=== PATIENT | female | born 1965 | race Caucasian/White ===

== ENCOUNTER → 2017-02-16 | Outpatient (CLI) | payer SELFPAY | LOC: FIMAGING 15:49 | PROVIDERS: ATTEND Orthopaedic Surgery | DX: Z01.818 Encounter for other preprocedural examination (principal); M17.11 Unilateral primary osteoarthritis, right knee ==

== ENCOUNTER 2017-03-04 06:01 | Observation (INO) | payer BC, OTHER ==
[~2017-03-04 06:01] MED LIST: ROPIVACAINE 0.2% 80 MG, EPINEPHrine 0.2 MG, KETOROLAC TROMETHAMINE 30 MG in SYRINGE 0 ML IU ONE; TRANEXAMIC ACID 3,000 MG in NS 50 ML IRR ONE
[2017-03-04] MEDS ORDERED: ceFAZolin 2 GM/SWFI 2 GM/20 ML SYR IVP ONE (06:26)
[2017-03-04] MEDS ORDERED: DEXAMETHASONE 4 MG/ML VIAL IVP ONE (06:26)
[2017-03-04] MEDS ORDERED: FAMOTIDINE 20 MG TAB PO ONE (06:26)
[2017-03-04] MEDS ORDERED: LR 1,000 ML IV ONE (06:26)
[2017-03-04] MEDS ORDERED: ACETAMINOPHEN 325 MG TAB PO ONE (06:26)
[2017-03-04] MEDS ORDERED: LIDOCAINE 1% 2 ML INJ ONE (06:33)
[2017-03-04] MEDS ORDERED: VANCOMYCIN 1 GM VIAL ONE (06:52)
[2017-03-04] MEDS ORDERED: TRANEXAMIC ACID 3,000 MG/50 ML BAG IRR ONE (06:53)
--- NOTE | 2017-03-04 07:24 | PDHPUP ---
History & Physical Update H&P update statement: This history and physical update is based on an assessment of the patient which was completed after admission or registration (within 24 hours), but prior to the surgery/procedure. H&P update: H&P reviewed & patient examined, no change in patient's condition since H&P completed
[2017-03-04] MEDS ORDERED: PROPOFOL 200 MG/20 ML VIAL ONE ×2 (07:53→09:01)
[2017-03-04] MEDS ORDERED: MIDAZOLAM 2 MG/2 ML VIAL ONE (07:53)
[2017-03-04] MEDS ORDERED: fentaNYL 100 MCG/2 ML INJ IVP PRN (08:26)
[2017-03-04] MEDS ORDERED: LR 500 ML IV PRN (08:26)
[2017-03-04] MEDS ORDERED: MEPERIDINE 25 MG/ML SYR IVP PRN (08:26)
[2017-03-04] MEDS ORDERED: NALOXONE HCL 0.4 MG/ML INJ IVP PRN (08:26)
[2017-03-04] MEDS ORDERED: PROMETHAZINE HCL 25 MG/ML INJ IVP PRN ×2 (08:26→09:30)
[2017-03-04] MEDS ORDERED: OXYCODONE/APAP 5/325 TAB PO PRN (08:26)
[2017-03-04] MEDS ORDERED: ALBUTEROL 3 ML DEYVIAL IH PRN (08:26)
[2017-03-04] MEDS ORDERED: ACETAMINOPHEN 500 MG TAB PO PRN (08:26)
[2017-03-04] MEDS ORDERED: HYDROCODONE/APAP 5/325 TAB PO PRN (08:26)
[2017-03-04] MEDS ORDERED: METOCLOPRAMIDE 10 MG/2 ML VIAL IVP PRN ×2 (08:26→09:30)
[2017-03-04] MEDS ORDERED: ONDANSETRON 4 MG/2 ML VIAL IVP PRN ×2 (08:26→09:30)
[2017-03-04] MEDS ORDERED: DEXAMETHASONE 4 MG/ML VIAL IVP PRN (08:26)
--- NOTE | 2017-03-04 08:26 | PDANEPAE ---
ANE Past Medical History - Cardiovascular History Hx Hypertension: No Hx Arrhythmias: No Hx Chest Pain: No Hx Coronary Artery / Peripheral Vascular Disease: No Hx CHF / Valvular Disease: No Hx Palpitations: No - Pulmonary History Hx COPD: No Hx Asthma/Reactive Airway Disease: No Hx Recent Upper Respiratory Infection: No Hx Oxygen in Use at Home: No Hx Sleep Apnea: No Sleep Apnea Screening Result - Last Documented: Negative Pulmonary History Comment: CHILDHOOD ASTHMA - Neurologic History Hx Cerebrovascular Accident: No Hx Seizures: No Hx Dementia: No - Endocrine History Hx Diabetes: No - Renal History Hx Renal Disorders: No - Liver History Hx Hepatic Disorders: No - Neurological & Psychiatric Hx Hx Neurological and Psychiatric Disorders: No - Cancer History Hx Cancer: No - Congenital Disorder History Hx Congenital Disorders: No - GI History Hx Gastrointestinal Disorders: No - Other Health History Other Health History: NEG - Chronic Pain History Chronic Pain: Yes (R KNEE, LOW BACK) - Surgical History Prior Surgeries: KNEE SURG X4 R ANE Review of Systems Review of Systems: - Exercise capacity METS (RN): 6 METS ANE Patient History - Allergies Allergies/Adverse Reactions: No Known Allergies Allergy (Unverified 01/13/17 14:39) - Home Medications Home Medications: Calcium Carbonate [Oyster Shell Calcium 500 mg (*)] 500 mg PO DAILY 01/13/17 [ Last Taken 02/22/17] Ibuprofen [Motrin (*)] 200 mg PO DAILY PRN 01/13/17 [Last Taken 02/22/17] Multivitamins [Multivitamin (*)] 1 each PO DAILY 01/13/17 [Last Taken 02/22/17] - NPO status NPO Since - Liquids (Date): 03/04/17 NPO Since - Liquids (Time): 04:55 NPO Since - Solids (Date): 03/03/17 NPO Since - Solids (Time): 20:00 - Smoking Hx Smoking Status: Never smoked - Family Anes Hx Family Hx Anesthesia Complications: NEG ANE Labs/Vital Signs - Vital Signs Blood Pressure: 120/81 Heart Rate: 53 Respiratory Rate: 16 O2 Sat (%): 96 Height: 160.02 cm Weight: 63.503 kg ANE Physical Exam - Airway Neck exam: FROM Mallampati Score: Class 1 Mouth exam: normal dental/mouth exam - Pulmonary Pulmonary: no respiratory distress, no rales or rhonchi, clear to auscultation - Cardiovascular Cardiovascular: regular rate and rhythym, no murmur, rub, or gallop - ASA Status ASA Status: I ANE Anesthesia Plan Anesthesia Plan: spinal Regional Anesthesia: single shot NB, adductor canal FNB
[2017-03-04] MEDS ORDERED: LIDOCAINE 2% 5 ML SDV ONE (08:27)
[2017-03-04] MEDS ORDERED: ROPIVACAINE HCL 150 MG/30 ML INJ ONE (08:27)
[2017-03-04] MEDS ORDERED: LR 1,000 ML IV SCH (09:30)
[2017-03-04] MEDS ORDERED: BISACODYL 10 MG SUPP PR PRN (09:30)
[2017-03-04] MEDS ORDERED: MAGNESIUM HYDROXIDE 30 ML UDCUP PO PRN (09:30)
[2017-03-04] MEDS ORDERED: PROMETHAZINE HCL 25 MG SUPPR PR PRN (09:30)
[2017-03-04] MEDS ORDERED: POLYETHYLENE GLYCOL 3350 17 GM PKT PO PRN (09:30)
[2017-03-04] MEDS ORDERED: oxyCODONE IR 5 MG TAB PO PRN (09:30)
[2017-03-04] MEDS ORDERED: diphenhydrAMINE 25 MG CAP PO PRN (09:30)
[2017-03-04] MEDS ORDERED: ONDANSETRON DISINTEGRATING 4 MG TAB PO PRN (09:30)
[2017-03-04] MEDS ORDERED: LACTULOSE 20 GM/30 ML UDCUP PO PRN (09:30)
[2017-03-04] MEDS ORDERED: CYCLOBENZAPRINE 10 MG TAB PO PRN (09:30)
[2017-03-04] MEDS ORDERED: TEMAZEPAM 15 MG CAP PO PRN (09:30)
[2017-03-04] MEDS ORDERED: DIPHENOXYLATE/ATROPINE LOMOTIL 1 TAB PO PRN (09:30)
--- NOTE | 2017-03-04 09:30 | POSTOPPROG ---
Post Op Note Date of Operation: 03/04/17 Surgeon: Anne Sibley Range Operator: maria fernanda sibley Anesthesiologist: dr. villar Anesthesia: Spinal Pre-op Diagnosis: right knee OA Post-op Diagnosis: same Indication: right knee pain due to OA that failed conservative measures Procedure: R med MPL robot assisted Findings: severe knee OA Inf/Abcess present in the surg proc area at time of surgery?: No EBL: 50-100
--- NOTE | 2017-03-04 10:21 | POSTANESTH ---
Post Anesthetic Evaluation Cardiovascular Status: Normal, Stable Respiratory Status: Normal, Stable Level of Consciousness/Mental Status: Can Participate in Eval Pain Control: Adequate, Prn Tx Ordered Nausea/Vomiting Control: Adequate, Prn Tx Ordered Complications Possibly Related to Anesthesia: None Noted
[2017-03-04 10:24] VITALS: TEMP 96.8
[2017-03-04 10:51] VITALS: PULSE 50
[2017-03-04] MEDS ORDERED: ACETAMINOPHEN 325 MG TAB PO SCH (12:00)
[2017-03-04 12:27] VITALS: BP 120/92; RESP 15; O2SAT 97
[2017-03-04] MEDS ORDERED: ceFAZolin 2 GM/DEXTROSE 100 ML IV SCH (14:00)
[2017-03-04] MEDS ORDERED: ASPIRIN 81 MG CHEWABLE TAB PO SCH (21:00)
[2017-03-04] MEDS ORDERED: FAMOTIDINE 20 MG TAB PO SCH (21:00)
[2017-03-04] MEDS ORDERED: SENNOSIDES/DOCUSATE SODIUM TAB PO SCH (21:00)
--- NOTE | 2017-03-05 03:11 | GOP ---
[f rep st] OPERATIVE REPORT DATE OF OPERATION: 03/04/2017 SURGEON: Johnny Craft MD OVERNIGHT STOCKER: Kylah Craft PA-C ANESTHESIA: Spinal. PREOPERATIVE DIAGNOSIS: Right knee osteoarthritis. POSTOPERATIVE DIAGNOSIS: Right knee osteoarthritis. PROCEDURE PERFORMED: Partial knee replacement. Right medial compartment with robotic assist. FINDINGS: ESTIMATED BLOOD LOSS: 30 cc. INDICATIONS: This is a 51-year-old female with progressive pain of the right knee unresponsive to conservative care. Risks and benefits of surgical intervention were explained in detail. DESCRIPTION OF PROCEDURE: The patient was brought to the operating room and placed on the table in supine position. Spinal anesthesia was induced without difficulty. A pneumatic tourniquet was applied about the right proximal thigh and the leg was prepped and draped in sterile fashion. Attention was turned first to the distal aspect of the right femur. At 3 cm proximal to the lateral rise of the femur, 2 percutaneous half pins were placed for fixation of the femoral array. In a similar fashion, 2 pins were placed anterolateral on the tibia for fixation of the tibial array. External land marking and registration of the hip center were performed without difficulty. After exsanguination by elevation, the tourniquet was inflated to 250 mmHg. Incision was made from the tibial tuberosity to the superior pole of the patella. Dissection was carried out through the subcutaneous tissue to the deep fascia using Bovie electrocautery for hemostasis. Medial parapatellar arthrotomy was carried out to the superior pole of the patella. The medial collateral ligament was elevated and the infrapatellar fat pad was resected. Internal femoral and tibial registration were carried out without difficulty and the femoral and tibial checkpoints were placed and verified for accuracy. Attention was turned to the femur. The foot print for the size 4 femoral component was cut with the 6 mm bur using the Zipcar robotic system and verified for accuracy against the CT based plan. The hole was cut for the femoral post. In a similar fashion, the 6 mm bur was used to cut the foot print for the size 3 tibial component using the Zipcar system and verified for accuracy against the CT based plan. Attention was turned to the posterior aspect of the knee and remnants of the medial meniscus were excised. The posterior capsule was injected with ropivacaine, epinephrine and Toradol. Trial reduction was carried out and there was excellent range of motion, alignment and stability using the size 4 femoral component and the size 3 tibial component, 3 x 9 mm polyethylene. All trials were then removed. The joint was thoroughly irrigated and carefully dried. One package of cement and 1 gram of vancomycin were mixed in the vacuum mixer and placed on the fixation surfaces of all components. The components were implanted and all excess cement was thoroughly removed. Implant placement was verified against the CT view plan and found to be excellent. The tourniquet was deflated and all bleeders were coagulated. The wound was thoroughly irrigated and closed using interrupted sutures of 2-0 Vicryl for the joint capsule. The subcu was closed with 3-0 Vicryl and the skin with 4-0 Monocryl. Dermabond and Steri-Strips were applied, followed by a compressive dressing. The patient was then moved from the operating room to the recovery room in good condition, having tolerated the procedure well. PATHOLOGY: Severe medial compartment osteoarthritis. CASE CLASSIFICATION: Clean. /[id number]/MODL MTDD
--- NOTE | 2017-03-05 08:26 | GDS ---
[f rep st] DISCHARGE SUMMARY ADMISSION DIAGNOSIS: Right knee osteoarthritis. DISCHARGE DIAGNOSIS: Right knee osteoarthritis. PROCEDURE: Right partial knee arthroplasty, medial compartment, robot-assisted. VTE PROPHYLAXIS: Recommend aspirin 81 mg twice daily for 4 weeks. BRIEF DESCRIPTION OF HOSPITAL STAY: Patient was admitted for an elective joint arthroplasty. The pa margarita tolerated the procedure well and has passed physical therapy. The patient was given appropriat e antibiotic prophylaxis and venous thromboembolism prophylaxis. The patient's pain was well control led on oral pain medication, patient was holding down food, and had urinated. Decision was made to d ischarge the patient. The patient was given post-operative prescriptions pre-operatively. PLAN: Please follow up as scheduled, Dr. Craft's office March 23 at 9:00 a.m. /[id number]/MODL
--- NOTE | 2017-03-05 10:20 | ASDISCHSUM ---
Discharge Information Plan Status:Home with No Needs Medically Cleared to Leave: Discharge Date:03/04/2017 03:06 PM CM D/C Disposition:Home, Routine, Self-Care ADT D/C Disposition:Home, Routine, Self-Care Projected Discharge Date:03/04/2017 03:06 PM Transportation at D/C: Discharge Delay Reason: Follow-Up Date:03/04/2017 03:06 PM Discharge Slot: Final Diagnosis: Placement Information Patient Contact Information Contact Name:NICOLA Relationship:Sister Address: Home Phone: City: [facility] Phone: [facility]/Zip Code: Email: Financial Information Financial Class:[facility] [employer] Primary Plan Desc:[employer] HMO OPEN [employer] LOCAL Primary Plan Number:[id number] Secondary Plan Desc: Secondary Plan Number: Assessment Information Intervention Information Intervention Type:*Incorrect Registration Date of Service:03/04/2017 09:38 AM Patient Type:Inpatient Staff Member:JONATHAN Tillman, Kiley Hours: Discipline: Severity: Comment:
== END 2017-03-04 15:06 | disposition home or self-care (01) ==
LOC: F3N 06:01 → INTOOBSV 06:01
PROVIDERS: ADMIT Orthopaedic Surgery; ATTEND Orthopaedic Surgery
PROC: 8E0YXBZ Computer Assisted Procedure of Lower Extremity (ICD-10-PCS; principal; 2017-03-04 08:15)
PROC: 0SRC0JZ Replacement of Right Knee Joint with Synthetic Substitute, Open Approach (ICD-10-PCS; principal; 2017-03-04 08:15)
DX: M17.11 Unilateral primary osteoarthritis, right knee (principal); M25.561 Pain in right knee; M54.16 Radiculopathy, lumbar region
CPT/HCPCS: 97161-GP; 97165-GO; C1713; J0171; J0690; J1100; J1885; J2250; J2704; J2795; J3370